=== PATIENT | female | born 1950 | race Caucasian/White ===

== ENCOUNTER 2023-07-30 08:23 | Inpatient (IN) | payer OTHER ==
[~2023-07-30] VITALS: Ht 165.1 cm; Wt 83.0 kg
[~2023-07-30 08:23] MED LIST: AMBIEN10 MG PO; CIPRO750 MG PO; Colace 100MG PO; NEURONTIN PO; PERCOCET 5/3251 TAB PO
[2023-07-31] MEDS ORDERED: CANDESARTAN-HC1 EAC1 PO (13:26)
[2023-07-31] MEDS ORDERED: NORVASC5 MG PO (13:27)
[2023-07-31] MEDS ORDERED: CANDE PO (13:27)
[2023-08-04] MEDS ORDERED: PRAVASTATIN SOD40 MG (09:19)
[2023-08-04] MEDS ORDERED: OLOPATADINE HCL5 ML (09:20)
[2023-08-04] MEDS ORDERED: CANDESARTAN-HC1 EAC1 (09:20)
[2023-08-04] MEDS ORDERED: CANDESARTAN CIL16 MG (09:20)
[2023-08-04] MEDS ORDERED: CLOPIDOGREL BIS75 MG (09:20)
[2023-08-04] MEDS ORDERED: CANDESARTAN CILE8 M1 (09:21)
[2023-08-04] MEDS ORDERED: PERCOCET 5-3251 EACH PO (11:53)
[2023-08-04] MEDS ORDERED: MEDROLPACK PO (11:54)
[2023-08-04] MEDS ORDERED: AMOX-CLAV 875-1 EACH PO (11:54)
[2023-08-04] MEDS ORDERED: GABAPENTIN100 M2 PO (11:55)
[2023-08-04] MEDS ORDERED: NEURONTIN800 MG PO (11:55)
[2023-08-04] MEDS ORDERED: COLACE100 MG PO (11:56)
[2023-08-04] MEDS ORDERED: ZOFRAN8 MG PO (11:56)
[2023-08-05 07:09] LABS: HEMATOCRIT 36.7 % (36.0-45.00); HEMOGLOBIN 12.1 g/dL (12.0-15.00); MEAN CELL VOLUME 92.7 fL (80.00-100.00); MEAN CORPUSCULAR HEMOGLOBIN 30.5 pg (27.00-32.0); MEAN CORPUSCULAR HGB CONC 32.9 g/dl (32.0-36.0); PLATELET COUNT 207 K/uL (150-450); RED BLOOD COUNT 3.96 M/uL (4.00-6.00); RED CELL DISTRIBUTION WIDTH 13.5 % (11.5-14.5)
[2023-08-05 09:13] LABS: CALCIUM 8.5 mg/dL (8.5-10.1); CREATININE SERUM 1.04 mg/dL (0.55-1.02); GFR 52.09; POTASSIUM 3.81 mEq/L (3.5-5.1)
[2023-08-05 15:21] LABS: HEMATOCRIT 36.3 % (36.0-45.00); HEMOGLOBIN 12.1 g/dL (12.0-15.00); MEAN CELL VOLUME 91.7 fL (80.00-100.00); MEAN CORPUSCULAR HEMOGLOBIN 30.6 pg (27.00-32.0); MEAN CORPUSCULAR HGB CONC 33.3 g/dl (32.0-36.0); PLATELET COUNT 225 K/uL (150-450); RED BLOOD COUNT 3.96 M/uL (4.00-6.00); RED CELL DISTRIBUTION WIDTH 13.9 % (11.5-14.5)
[2023-08-05 19:41] LABS: URINE APPEARANCE Cloudy; URINE BILIRRUBIN Negative (NEGATIVE); URINE BLOOD Negative; URINE COLOR Dark Yellow; URINE GLUCOSE Negative (NEGATIVE); URINE LEUKOCYTE Trace; URINE NITRATE Negative; URINE PROTEIN 30 (NEGATIVE); URINE UROBILINOGEN 0.2 E.U./dl
[2023-08-05 19:42] LABS: URINE BACTERIA 78.5 uL (0.0-1933); URINE EPITHELIAL CELLS 46.3 uL (0.0-38.8); URINE RBC 5.5 uL (0.0-20.8); URINE WBC 95.6 uL (0.0-23.2)
== END 2023-08-06 17:30 | disposition home health service (06) | DRG 455 ==
LOC: O/R 08-04 05:40 → SURG 08-04 10:15 → PED 08-04 16:17
PROVIDERS: ADMIT Orthopaedic Surgery Orthopaedic Surgery of the Spine; ATTEND Orthopaedic Surgery Orthopaedic Surgery of the Spine
PROC: 0SG0071 Fusion of Lumbar Vertebral Joint with Autologous Tissue Substitute, Posterior Approach, Posterior Column, Open Approach (ICD-10-PCS; 2023-08-04)
PROC: 0QB30ZZ Excision of Left Pelvic Bone, Open Approach (ICD-10-PCS; 2023-08-04)
PROC: 0SB20ZZ Excision of Lumbar Vertebral Disc, Open Approach (ICD-10-PCS; 2023-08-04)
PROC: 4A1104G Monitoring of Peripheral Nervous Electrical Activity, Intraoperative, Open Approach (ICD-10-PCS; 2023-08-04)
PROC: 07DR0ZZ Extraction of Iliac Bone Marrow, Open Approach (ICD-10-PCS; 2023-08-04)
PROC: 0SG00A0 Fusion of Lumbar Vertebral Joint with Interbody Fusion Device, Anterior Approach, Anterior Column, Open Approach (ICD-10-PCS; principal; 2023-08-04 10:15)
DX: M48.062 Spinal stenosis, lumbar region with neurogenic claudication (principal); M51.36 Other intervertebral disc degeneration, lumbar region